=== PATIENT | female | born 1975 | race Caucasian/White ===

== ENCOUNTER → 2018-06-06 | Outpatient (CLI) | payer OTHER | LOC: MC.RAD 10:00 | DX: Z12.31 Encounter for screening mammogram for malignant neoplasm of breast (principal) ==

== ENCOUNTER 2018-09-30 10:41 | Emergency (ER) | payer OTHER ==
[~2018-09-30] VITALS: Ht 180.3 cm; Wt 63.6 kg
[2018-09-30 10:47] VITALS: TEMP 98.3
[2018-09-30] MEDS ORDERED: ALLEGRA ALLERGY60 MG PO (10:49)
[2018-09-30] MEDS ORDERED: MULTI VITAMINS1 TAB PO (10:50)
[2018-09-30 11:09] LABS: ALANINE AMINOTRANSFERASE 27 U/L (9-52); ALBUMIN 4.5 gm/dL (3.5-5.0); ALKALINE PHOSPHATASE 50 U/L (50-136); ANION GAP 10 mmol/L (7-16); AST,SGOT 31 U/L (15-37); BASO # 0.1 (0.0-0.2); BASO % 0.7 % (0.0-2.0); BILIRUBIN,TOTAL 0.3 mg/dL (0.0-1.0); BLOOD UREA NITROGEN 14 mg/dL (7-17); CALCIUM 9.4 mg/dL (8.4-10.2); CARBON DIOXIDE 27 mmol/L (22-30); CHLORIDE 103 mmol/L (98-107); CREATININE, serum 0.83 (0.52-1.25); EOS # 0.1 (0.0-0.7); EOS % 1.4 % (0-4.0); GLUCOSE 92 mg/dL (74-106); GRAN % 55.9 % (42.2-75.2); HEMATOCRIT 39.5 % (37.0-47.0); HEMOGLOBIN 13.1 g/dl (12.5-16.0); LYMPH # 2.4 (1.2-3.4); LYMPH % 33.7 % (20.0-51.0); MEAN CELL VOLUME 90 fl (80.0-100.0); MEAN CORPUSCULAR HEMOGLOBIN 30 pg (27.0-31.0); MEAN CORPUSCULAR HGB CONC 33 g/dl (33.0-37.0); MEAN PLATELET VOLUME 9.8 fl (7.4-10.4); MONO # 0.6 (0.1-0.6); PLATELET COUNT 285 K/mm3 (130-400); RED BLOOD COUNT 4.38 M/mm3 (4.10-5.30); REDCELL DISTRIBUTION WIDTH-CV 12.7 % (11.5-14.5); SODIUM 140 mmol/L (137-145); TOTAL PROTEIN 8.5 gm/dL (6.4-8.2)
[2018-09-30 11:24] LABS: C-REACTIVE PROTEIN 0.6 mg/dL (0.0-0.9)
[2018-09-30 11:34] LABS: TROPONIN-I < 0.012 ng/mL (0.000-0.035)
[2018-09-30 12:26] VITALS: BP 107/78; PULSE 78
== END 2018-09-30 12:26 | disposition home or self-care (01) ==
LOC: COL.ER 10:41
PROVIDERS: Physician Assistant
DX: K22.4 Dyskinesia of esophagus (principal); Z90.89 Acquired absence of other organs
CPT/HCPCS: C9113; J7030

== ENCOUNTER 2019-10-11 10:29 | Day surgery (SDC) | payer OTHER ==
[~2019-10-11] VITALS: Ht 180.3 cm; Wt 62.4 kg
[~2019-10-11 10:29] MED LIST: ALLEGRA ALLERGY60 MG PO; MULTI VITAMINS1 TAB PO
[2019-10-11] MEDS ORDERED: FLONASEALLERGY NS (11:18)
[2019-10-11 11:20] VITALS: BP 116/68; PULSE 57; TEMP 97.5
[2019-10-11 12:50] VITALS: BP 109/75; PULSE 70; TEMP 97.7
--- NOTE | 2019-10-11 12:50 | NUR ---
The patient arrived back to [facility] from the endoscopy suite at this time. The patient appears alert and oriented and denies any pain or nausea at this time. Post procedure vital signs were started at this time. The patient ambulated from the cart to the recliner in her room with the stand by assistance of two nurses and appeared to tolerate the activity well. The patient agrees to try some water at this time. Call light is within reach. Will continue to monitor the patient.
[2019-10-11 13:05] VITALS: BP 101/70; PULSE 65
--- NOTE | 2019-10-11 13:05 | NUR ---
The patient has finished her water and requests to try some saltine crackers and apple sauce. She would also like a refill of her water. Vital signs appear stable. Will continue to monitor the patient.
[2019-10-11 13:20] VITALS: BP 110/74; PULSE 61
--- NOTE | 2019-10-11 13:30 | NUR ---
The patient has finished her food and drink and appeared to tolerate both well. The patient's vital signs continue to appear stable. The patient voices a desire to be discharged home.
--- NOTE | 2019-10-11 13:30 | NUR ---
Discharge instructions were reviewed with the patient at this time. She verbalized understanding and has no questions for the nurse at this time. The patient's IV to her right anecubital was removed and a pressure dressing was applied to the site. The nurse instructed the patient to get dressed and notify the staff when she is ready to be escorted out. She is going to contact her to come pick her up.
--- NOTE | 2019-10-11 13:40 | NUR ---
The patient was escorted out via wheelchair to a private vehicle by AMMON Pham. The patient's is present to drive her home.
== END 2019-10-11 13:40 | disposition home or self-care (01) ==
LOC: SDCO 10:29
DX: R10.11 Right upper quadrant pain (principal); R93.2 Abnormal findings on diagnostic imaging of liver and biliary tract; K44.9 Diaphragmatic hernia without obstruction or gangrene; Z79.899 Other long term (current) drug therapy
CPT/HCPCS: J2250; J3010; J7030

== ENCOUNTER → 2020-02-21 | Outpatient (CLI) | payer OTHER ==
[~2020-02-21] MED LIST changes: +FLONASEALLERGY NS
== END ==
LOC: COL.RAD
DX: R07.9 Chest pain, unspecified (principal); R79.1 Abnormal coagulation profile
CPT/HCPCS: Q9967

== ENCOUNTER 2020-03-17 14:54 | Emergency (ER) | payer OTHER ==
[~2020-03-17] VITALS: Ht 180.3 cm; Wt 63.6 kg
[2020-03-17 15:07] VITALS: TEMP 98.4
[2020-03-17 15:42] LABS: BASO # 0.1 (0.0-0.2); BASO % 0.8 % (0.0-2.0); EOS # 0.1 (0.0-0.7); EOS % 1.1 % (0-4.0); GRAN # 4.6 (1.4-6.5); GRAN % 63.2 % (42.2-75.2); HEMATOCRIT 38.5 % (37.0-47.0); HEMOGLOBIN 12.7 g/dl (12.5-16.0); LYMPH % 27.9 % (20.0-51.0); MEAN CELL VOLUME 91 fl (80.0-100.0); MEAN CORPUSCULAR HEMOGLOBIN 30 pg (27.0-31.0); MEAN CORPUSCULAR HGB CONC 33 g/dl (33.0-37.0); MEAN PLATELET VOLUME 10.2 fl (7.4-10.4); MONO # 0.5 (0.1-0.6); MONO % 6.7 % (1.7-9.3); PLATELET COUNT 258 K/mm3 (130-400); RED BLOOD COUNT 4.21 M/mm3 (4.10-5.30); REDCELL DISTRIBUTION WIDTH-CV 12.9 % (11.5-14.5)
[2020-03-17 15:45] LABS: PROTHROMBIN TIME 11.1 SECONDS (9.7-12.8)
[2020-03-17 15:54] VITALS: BP 110/78; PULSE 64
== END 2020-03-17 15:57 | disposition home or self-care (01) ==
LOC: COL.ER 14:54
PROVIDERS: Family Medicine
DX: R20.2 Paresthesia of skin (principal)

== ENCOUNTER → 2020-05-22 | Outpatient (CLI) | payer OTHER | LOC: COL.RAD 07:52 | DX: G62.9 Polyneuropathy, unspecified (principal) | CPT/HCPCS: A9585 ==

== ENCOUNTER → 2020-12-03 | Outpatient (CLI) | payer OTHER | LOC: COL.RAD 11-06 07:30 | DX: K76.89 Other specified diseases of liver (principal) | CPT/HCPCS: A9585 ==